=== PATIENT | female | born 1990 | race Caucasian/White ===

== ENCOUNTER 2022-05-15 12:48 | Outpatient (CLI) | payer OTHER ==
[~2022-05-15] VITALS: Ht 175.3 cm; Wt 92.4 kg
[2022-05-15 13:10] VITALS: BP 128/80; PULSE 91
[2022-05-15] MEDS ORDERED: QUALITY CHOICE1 TA7 (13:13)
--- NOTE | 2022-05-15 13:15 | NUR ---
1255 PT AMBULATORY TO UNIT WITH SUPPORT PERSON. PT COMFORTABLE TODAY. REPORTS NO CTX, NO LEAKING OF FLUID, AND POSITIVE MOVEMENT. SENT FROM OFFICE FOR SERIAL BLOOD PRESSURES. REPORTS SHE GOT LAB DRAWN AND COMPLETED 24HR URINE SPECIMEN THAT WAS TURNED IN TO [facility]. EFM TRACING CATEGORY 1 AT THIS TIME.
[2022-05-15 13:20] VITALS: BP 119/79; PULSE 81
[2022-05-15 13:30] VITALS: BP 144/93; PULSE 85; TEMP 98.3
[2022-05-15 13:50] VITALS: BP 122/77; PULSE 74
[2022-05-15 14:00] VITALS: BP 113/76; PULSE 77
[2022-05-15 14:06] VITALS: BP 118/77; PULSE 77
== END 2022-05-15 14:15 | disposition home or self-care (01) ==
LOC: LDRO 12:48
DX: O16.3 Unspecified maternal hypertension, third trimester (principal); Z3A.38 38 weeks gestation of pregnancy

== ENCOUNTER 2022-06-06 16:33 | Inpatient (IN) | payer OTHER ==
[2022-06-06] VITALS (20 sets, daily range): BP systolic 119–145; BP diastolic 68–97; PULSE 65–92; TEMP 97.8–97.9
[~2022-06-06] VITALS: Ht 175.3 cm; Wt 95.5 kg
--- NOTE | 2022-06-06 16:30 | NUR ---
1630 - PATIENT AMBULATORY TO [facility] ACCOMPANIED BY SPOUSE. PLAN OF CARE REVIEWED. PATIENT CHANGES INTO GOWN. PATIENT REPORTS CONTRACTIONS STARTING TODAY AT 0030 AND CONTINUING THROUGHOUT THE DAY. PATIENT ALSO REPORTS A GUSH OF FLUID AT 1500. PATIENT DENIES BLOODY SHOW AND STATES BABY HAS GOOD MOVEMENT. 1636 - PATIENT ON MONITOR. 1639 - SVE PERFORMED BY LUIS FELDMAN. /-1. 1645 - IV PLACED LEFT HAND. LABS DRAWN ORDERED. 1705 - PATIENT OFF MONITORING FOR AMBULATION IN HALLWAY. 1735 - PATIENT RETURNS TO ROOM. PATIENT REQUESTS EPIDURAL - GREYSON HENRIQUEZ NOTIFIED OF PATIENT REQUEST. LR BOLUS INITIATED. 1750 - GREYSON HENRIQUEZ AT BEDSIDE FOR EPIDURAL PLACEMENT. 1800 - EFM TRACING INDESCERNIBLE DUE TO MATERNAL POSITION. 1806 - TEST DOSE GIVEN BY GREYSON. PATIENT TOLERATED WELL. PATIENT REPOSITIONED. EFM REPOSITIONED. CARE ONGOING.
[~2022-06-06 16:33] MED LIST: QUALITY CHOICE1 TA7
[2022-06-06 17:05] LABS: BASO % 0.2 % (0.0-2.0); EOS % 0.4 % (0.0-4.0); GRAN # 6.8 K/mm3 (1.4-6.5); GRAN % 74.8 % (42.2-75.2); HEMOGLOBIN 12.4 g/dl (12.5-16.0); LYMPH # 1.4 K/mm3 (1.2-3.4); LYMPH % 14.9 % (20.0-51.0); MEAN CELL VOLUME 87 fl (80.0-100.0); MEAN CORPUSCULAR HEMOGLOBIN 29 pg (27-31); MEAN CORPUSCULAR HGB CONC 34 g/dl (33.0-37.0); MEAN PLATELET VOLUME 10.4 fl (7.4-10.4); MONO # 0.8 K/mm3 (0.1-0.6); MONO % 9.1 % (1.7-9.3); PLATELET COUNT 252 K/mm3 (130-400); RED BLOOD COUNT 4.27 M/mm3 (4.10-5.30); REDCELL DISTRIBUTION WIDTH-CV 14.1 % (11.5-14.5)
--- NOTE | 2022-06-06 19:05 | NUR ---
Morrissey catheter placed to dependent drainage. Clear yellow urine out. Secured to leg with statlock. SVE 7/90/0. Pt positioned to left lateral with peanut ball. Safety precautions reviewed.
[2022-06-06 19:06] LABS: ALBUMIN 3.1 gm/dL (3.5-5.0); BILIRUBIN,TOTAL 0.4 mg/dL (0.2-1.2); CALCIUM 8.9 mg/dL (8.4-10.2); CREATININE, serum 0.61 mg/dL (0.57-1.11); POTASSIUM 3.6 mmol/L (3.5-4.5); TOTAL PROTEIN 6.5 gm/dL (6.2-8.1)
[2022-06-06 19:38] LABS: COLLECTION METHOD CLEAN CATCH; URINE APPEARANCE Clear (CLEAR/HAZY); URINE COLOR Yellow (YELLOW)
[2022-06-06 19:39] LABS: MUCOUS Present (NOT PRESENT); SQUAMOUS EPITHELIAL 0-2 /hpf (0-10); URINE BACTERIA None Seen /hpf (NONE SEEN); URINE BLOOD Negative (NEGATIVE); URINE GLUCOSE Negative (NEGATIVE); URINE KETONE TRACE (NEGATIVE); URINE NITRATE Negative (NEGATIVE); URINE PROTEIN(semi-quant) Negative (NEGATIVE); URINE RBC 0-2 /hpf (0-2); URINE UROBILINOGEN 0.2 E.U/dL (0.2-1.0)
--- NOTE | 2022-06-06 19:45 | NUR ---
Dr. Watkins at bedside for SVE. -. Discussing with patient augmenting with pitocin, pt agreeable at this time. Pt positioned to right lateral with peanut ball. 1999 - Pitocin initiated at 2 mu/min per Dr. Watkins.
--- NOTE | 2022-06-06 20:50 | NUR ---
2037 - Dr. Watkins at bedside. SVE complete/+2. Room set up for delivery. Nursery nurse called to bedside. Morrissey catheter out. 150 of yellow urine out. Pt educated on pushing techniques, verbalized understanding. 2044 - Dr. Watkins remains at bedside. Initial push at this time. Pt pushing well. LUIS Ruffin at bedside for nursery. 2049 - Spontaneous delivery of viable girl. placed to mothers abdomen. Care of infant assumed to LUIS Ruffin. Cord clamped x [address] Watkins and cut by FOB. Cord blood donation sample obtained by Dr. Watkins. Pitocin off. Cord blood obtained. 2055 - Spontaneous delivery of intact placenta. Fundus firm and down 1 from umbilicus. Pitocin restarted at 333 mL/hr per protocol. Small amount of bleeding noted. Vaginal laceration repaired by Dr. Watkins. Epidural off. 2099 - Pericare provided. New chux beneath patient and ice pack to perineum. recovery started. See physician delivery note.
--- NOTE | 2022-06-06 23:00 | NUR ---
Few small clots out with fundal massage. Blood loss weighed on chux pad 167 g.
[2022-06-07] VITALS: BP 116/66; PULSE 76
--- NOTE | 2022-06-07 | NUR ---
Fundus up and diplaced to right with fundal check. Large clot out and chux pad 75% saturated. Weighed blood loss 487. Dr. Watkins notified, see physician notification.
--- NOTE | 2022-06-07 00:30 | NUR ---
Straight cath at this time. 1000 mL clear yellow urine out. Fundus firm and at umbilicus after bladder emptied and scant bleeding noted. Pericare provided. Mesh panties and peripad provided. Pt encouraged to keep baby in nursery and rest before attempting to ambulate.
[2022-06-07 03:00] VITALS: BP 104/57; PULSE 76
--- NOTE | 2022-06-07 03:30 | NUR ---
Pt positioned to sitting on edge of bed. Epidural catheter removed. Tip smooth, blue, and intact. Pt ambulated to bathroom independently. Pericare explained and provided. Pt able to void 900. Mesh panties and peripad applied. Clean gown on. Pt educated on need of 3 measured voids. Pt ambulated to room 216 with belongings.
[2022-06-07 06:30] VITALS: BP 126/69; PULSE 69; TEMP 98.2
[2022-06-07 17:00] VITALS: BP 131/80; PULSE 61; TEMP 97.8
[2022-06-07 19:30] VITALS: BP 126/75; PULSE 86; TEMP 97.7
[2022-06-08 09:00] VITALS: BP 133/80; PULSE 65; TEMP 97.9
--- NOTE | 2022-06-08 11:50 | NUR ---
Discharge instructions and follow up care reviewed with pt and at the bedside. Both verbalized an understanding, agreed with the plan and states no questions or concerns at this time.
== END 2022-06-08 12:10 | disposition home or self-care (01) | DRG 806 ==
LOC: LDRO 16:33 → LDR 16:45 → OB 16:45
PROVIDERS: Obstetrics & Gynecology; ADMIT Obstetrics & Gynecology
PROC: 10E0XZZ Delivery of Products of Conception, External Approach (ICD-10-PCS; principal; 2022-06-06)
PROC: 0UQMXZZ Repair Vulva, External Approach (ICD-10-PCS; 2022-06-06)
DX: O48.0 Post-term pregnancy (principal); O71.4 Obstetric high vaginal laceration alone; Z37.0 Single live birth; O13.4 Gestational [pregnancy-induced] hypertension without significant proteinuria, complicating childbirth; O62.0 Primary inadequate contractions; Z3A.41 41 weeks gestation of pregnancy
CPT/HCPCS: J2210; J2590; J7120